=== PATIENT | female | born 1995 | race Caucasian/White ===

== ENCOUNTER 2021-03-09 15:51 | Emergency (ER) | payer BC, SELFPAY ==
[2021-03-09 16:05] VITALS: BP 112/82; PULSE 115; RESP 20; TEMP 36.8; O2SAT 100
--- NOTE | 2021-03-09 16:08 | ECG_ITS ---
Measurements Intervals [place] Rate: 115 P: 18 [place]: 112 QRS: 53 QRSD: 88 T: -4 QT: 335 QTc: 464 Interpretive Statements SINUS TACHYCARDIA WITH SHORT MO INTERVAL NONSPECIFIC T-WAVE ABNORMALITY- ANTEROLAT/INF LEADS ABNORMAL ECG Electronically Signed On 03-09-2021 17:16:06 CDT by Rich Buck D.O.
[2021-03-09 17:15] VITALS: BP 134/81; PULSE 106; RESP 18; O2SAT 99
--- NOTE | 2021-03-09 18:04 | ED.GENADULT ---
HPI - General Adult General Chief complaint: Unspecified Stated complaint: ATE EDIBLE CHOCOLATE HEART RACING Time Seen by Provider: 03/09/21 17:31 History of Present Illness HPI narrative: Patient is a 25-year-old female who presents ER with anxiety after eating edible marijuana. It was in the form of a square of chocolate. She was unaware that he had THC in it. She reports she ingested it at 9 AM. She has been having intermittent racing of her heart and overwhelming anxiety that is worse than typical for her. No fevers or chills or sweats. She reports her heart rate has been as high as 170 bpm on her watch. No history of arrhythmia. No hemoptysis. No lower extremity swelling. No recent surgery or prolonged immobilization. Related Data Home Medications Medication Instructions Recorded Confirmed No Home Medications 03/09/21 03/09/21 Allergies Allergy/AdvReac Type Severity Reaction Status Date / Time No Known Allergies Allergy Verified 03/09/21 17:15 Review of Systems Review of Systems: All systems reviewed & are unremarkable except as noted in HPI and below Constitutional: Constitutional: Denies chills, Denies fever(s) and Denies night sweats Cardiovascular: Cardiovascular: Denies edema, Denies radiating jaw, neck or arm pain and Reports palpitations Respiratory: Respiratory: Denies cough, Denies hemoptysis and Denies dyspnea Psychiatric: Psychiatric: Reports anxiety PMFSH Past Medical History Medical History (Updated 03/09/21 @ 18:19 by Estuardo Goldman MD) Healthy female adult Surgical History Surgical History (Updated 07/28/19 @ 19:58 by Nury Ceballos PA-C) History of section Social History Social History (Updated 07/28/19 @ 15:44 by Dimple Martínez CNP) Smoking status: Never smoker Gender identity (if verbalized by the patient): Female Exam Narrative: GENERAL: Well-appearing, well-nourished, and in no acute distress. HEAD: Normocephalic, atraumatic. EYES: PERRL and EOMI. CHEST: Clear to auscultation. No respiratory distress. HEART: Tachycardic and regular. Normal peripheral pulses. EXTREMITIES: Normal range of motion. No edema. SKIN: Warm, dry, no rash. NEURO: Alert and oriented x3. PSYCH: Normal mood and affect. Course Course Emergency Course: Gave patient reassurance. Heart rate slowing down from earlier. Alprazolam ordered but patient declined. Vital Signs Vital signs: Vital Signs Temperature 98.2 F 03/09/21 16:05 Pulse Rate 115 H 03/09/21 16:05 Respiratory Rate 20 03/09/21 16:05 Blood Pressure 112/82 03/09/21 16:05 Pulse Oximetry 100 03/09/21 16:05 Temperature 98.2 F 03/09/21 16:05 Pulse Rate 106 H 03/09/21 17:15 Respiratory Rate 18 03/09/21 17:15 Blood Pressure 134/81 03/09/21 17:15 Pulse Oximetry 99 03/09/21 17:15 Medical Decision Making Vital Signs Vital Signs: Vital Signs Temperature 98.2 F 03/09/21 16:05 Pulse Rate 115 H 03/09/21 16:05 Respiratory Rate 20 03/09/21 16:05 Blood Pressure 112/82 03/09/21 16:05 Pulse Oximetry 100 03/09/21 16:05 Temperature 98.2 F 03/09/21 16:05 Pulse Rate 106 H 03/09/21 17:15 Respiratory Rate 18 03/09/21 17:15 Blood Pressure 134/81 03/09/21 17:15 Pulse Oximetry 99 03/09/21 17:15 ECG Data EKG #1: ECG completion date: 03/09/21 ECG completion time: 16:20 EKG Interpretation: tachycardia (115), sinus rhythm, non-specific ST changes, normal QRS, normal QT and NL axis Discharge Plan Discharge Clinical Impression: Anxiety Patient Disposition: Home, Self-Care Condition: Stable Instructions: Anxiety (ED) Additional Instructions: You are having anxiety provoked by marijuana. Refrain from ingesting additional intoxicants. Return to the ER if you have fever over 100.4 ?F, you cannot keep down food or water, you have additional concerns. Prescriptions: No Action No Home Medications RF: 0 F
[2021-03-09 18:45] VITALS: BP 114/77; PULSE 94; RESP 20; O2SAT 96
== END 2021-03-09 18:48 | disposition home or self-care (01) ==
PROVIDERS: Emergency Provider Emergency Medicine
DX: F41.9 Anxiety disorder, unspecified (principal); R00.0 Tachycardia, unspecified; R94.31 Abnormal electrocardiogram [ECG] [EKG]
CPT/HCPCS: 93005; 99283

== ENCOUNTER 2021-03-17 13:41 | Outpatient (CLI) | payer BC, SELFPAY ==
--- NOTE | 2021-03-23 07:38 | WPDHOLTEREM ---
Holter/Event Monitor Holter/Event Monitor Date of procedure: 03/17/21 Holter/Event Procedure: 48 Hr Holter Monitor Indications: Dizziness Conclusion: 1. 48 hour holter monitor on 03/17/21. 2. Underlying rhythm is sinus rhythm. HR range 42-150 bpm; average HR 82. 3. There are 4 premature supraventricular complexes. No supraventricular tachycardia. 4. No premature ventricular complex. No ventricular tachycardia. 5. No sinoatrial or atrioventricular blocks. No significant pauses greater than 2 seconds. 6. Patient reports symptoms of chest pain, dizziness, nausea which demonstrate sinus rhythm, HR range 70-100 bpm.
== END 2021-03-17 13:42 | disposition home or self-care (01) ==
PROVIDERS: PCP Physician Assistant; Visit Provider Physician Assistant
DX: R42 Dizziness and giddiness (principal); R00.0 Tachycardia, unspecified
CPT/HCPCS: 93225; 93226

== ENCOUNTER 2021-03-19 16:29 | Outpatient (CLI) | payer BC, SELFPAY ==
[2021-03-19 16:53] LABS: Basophils Percent Auto 0.2 % (0.2-1.2); Eosinophils Absolute Auto 0.2 K/mm3 (0-0.3); Eosinophils Percent Auto 1.9 % (0-4.4); Hematocrit 43.3 % (37.0-47.0); Hemoglobin 14.2 g/dL (12.0-15.0); Immature Granulocyte Absolute 0.03 K/mm3 (0.00-0.031); Immature Granulocyte Percent A 0.2 % (0-0.5); Lymphocytes Absolute Auto 2.43 K/mm3 (0.9-3.2); Lymphocytes Percent Auto 19.6 % (18.3-44.2); Mean Corpuscular HGB Conc 32.8 g/dl (32-36); Mean Corpuscular Hemoglobin 28.8 pg (26-34); Mean Corpuscular Volume 87.8 fl (80-100); Mean Platelet Volume 10.2 fl (7.4-10.4); Monocytes Absolute Auto 0.9 K/mm3 (0.1-0.6); Monocytes Percent Auto 7.3 % (2.6-8.5); Neutrophils Absolute Auto 8.8 K/mm3 (1.3-6.7); Neutrophils Percent Auto 70.8 % (45.5-73.1); Platelet Count Result 335 k/mm3 (150-375); Red Blood Count 4.93 M/mm3 (4.2-5.4); Red Cell Distribution Width 13.5 % (11.5-14.5); White Blood Count 12.4 K/mm3 (4.5-10.0)
[2021-03-19 17:06] LABS: Alanine Aminotransferase 21 U/L (4-35); Albumin Level 4.7 g/dL (3.5-5.1); Alkaline Phosphatase 71 U/L (38-126); Anion Gap 12 mmol/L (8-16); Aspartate Amino Transferase 23 U/L (14-36); Bilirubin,Total 0.4 mg/dL (0.2-1.3); Blood Urea Nitrogen 12 mg/dL (7-17); Calcium 9.6 mg/dL (8.4-10.2); Carbon Dioxide 25 mmol/L (22-30); Chloride 99 mmol/L (98-107); Cholesterol 157 mg/dL (0-200); Estimated Glomerular Filt Rate > 60; Glucose 91 mg/dL (65-110); HDL Direct 39 mg/dL; Potassium 3.7 mmol/L (3.4-5.0); Sodium 136 mmol/L (137-145); Triglycerides 107 mg/dL (<150)
[2021-03-19 17:17] LABS: LDL Cholesterol Direct 87 mg/dL
[2021-03-19 20:46] LABS: Hemoglobin A1C 5.4 % (<5.7)
[2021-03-22 16:52] LABS: Tissue Transglutaminase IgG Ab 1 U/mL (<6)
[2021-03-26 10:49] LABS: Tissue Transglutaminase IgA Ab 1 U/mL (<4)
== END 2021-03-19 16:30 | disposition home or self-care (01) ==
LOC: ANHLAB 16:32
PROVIDERS: PCP Physician Assistant; Visit Provider Physician Assistant
DX: Z76.89 Persons encountering health services in other specified circumstances (principal); R42 Dizziness and giddiness; Z91.018 Allergy to other foods
CPT/HCPCS: 36415; 80053; 80061; 83036; 83516; 84443; 85025

== ENCOUNTER 2022-03-12 22:06 | Emergency (ER) | payer BC, SELFPAY ==
--- NOTE | ~2022-03-12 | XR_ITS ---
EXAMINATION: XR chest 2V DATE: 03/12/2022 23:11 INDICATION: Shortness of breath. Left chest pressure. TECHNIQUE: Frontal and lateral views of the chest were obtained. COMPARISON: None. FINDINGS: There is no pneumonia, pleural effusion, or pneumothorax. The heart size is normal. IMPRESSION: 1. No acute cardiopulmonary disease. Reviewed, dictated and finalized at location A.
--- NOTE | 2022-03-12 22:10 | ECG_ITS ---
Measurements Intervals [place] Rate: 83 P: 18 [place]: 129 QRS: 64 QRSD: 90 T: 22 QT: 372 QTc: 439 Interpretive Statements SINUS RHYTHM WITH SINUS ARRHYTHMIA COMPARED TO ECG 03/09/2021 16:20:37 SINUS RHYTHM NOW PRESENT SINUS ARRHYTHMIA NOW PRESENT Electronically Signed On 03-13-2022 13:37:48 CDT by Leila Yip M.D.
--- NOTE | 2022-03-12 22:15 | ECG_ITS ---
Measurements Intervals [place] Rate: 68 P: 22 [place]: 137 QRS: 57 QRSD: 94 T: 21 QT: 383 QTc: 409 Interpretive Statements SINUS RHYTHM NONSPECIFIC ST ABNORMALITY BORDERLINE ECG COMPARED TO ECG 03/09/2021 16:20:37 HEART RATE HAS DECREASED Electronically Signed On 03-18-2022 15:00:51 CDT by Suresh Figueroa M.D.
[2022-03-12 22:21] VITALS: BP 132/80; PULSE 100; RESP 16; TEMP 36.3; O2SAT 100
[2022-03-12 22:37] LABS: Basophils Percent Auto 0.3 % (0.2-1.2); Eosinophils Absolute Auto 0.3 K/mm3 (0-0.3); Eosinophils Percent Auto 2.7 % (0-4.4); Hematocrit 39.4 % (37.0-47.0); Hemoglobin 13.1 g/dL (12.0-15.0); Immature Granulocyte Absolute 0.04 K/mm3 (0.00-0.031); Immature Granulocyte Percent A 0.3 % (0-0.5); Lymphocytes Percent Auto 26.3 % (18.3-44.2); Mean Corpuscular HGB Conc 33.2 g/dl (32-36); Mean Corpuscular Hemoglobin 29.4 pg (26-34); Mean Corpuscular Volume 88.3 fl (80-100); Mean Platelet Volume 10.2 fl (7.4-10.4); Monocytes Percent Auto 7.9 % (2.6-8.5); Neutrophils Absolute Auto 7.6 K/mm3 (1.3-6.7); Neutrophils Percent Auto 62.5 % (45.5-73.1); Platelet Count Result 334 k/mm3 (150-375); Red Blood Count 4.46 M/mm3 (4.2-5.4); White Blood Count 12.2 K/mm3 (4.5-10.0)
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
[2022-03-13] VITALS (8 sets, daily range): BP systolic 127–143; BP diastolic 63–86; PULSE 72–96; RESP 11–24; O2SAT 95–100
[2022-03-13] MEDS: ACETAMINOPHEN 325 MG TABLET 650 MG PO (00:03)
[2022-03-13 00:11] LABS: Alanine Aminotransferase 21 U/L (6-35); Albumin Level 4.7 g/dL (3.5-5.1); Alkaline Phosphatase 84 U/L (38-126); Anion Gap 10 mmol/L (8-16); Aspartate Amino Transferase 22 U/L (14-36); Bilirubin,Total 0.2 mg/dL (0.2-1.3); Blood Urea Nitrogen 16 mg/dL (7-17); Calcium 9.2 mg/dL (8.4-10.2); Carbon Dioxide 29 mmol/L (22-30); Chloride 100 mmol/L (98-107); Estimated CRCL calculation 93 ml/min; Estimated Glomerular Filt Rate > 60; Glucose 117 mg/dL (65-110); Potassium 3.5 mmol/L (3.4-5.0); Sodium 139 mmol/L (137-145)
[2022-03-13 00:43] LABS: Appearance Urine Clear (Clear); Bilirubin Urine Negative (Negative); Blood Urine 2+ (Negative); Color Urine Yellow (Yellow); Glucose Urine UA Negative (Negative); Ketones Urine Negative (Negative); Leukocyte Esterase Ur Negative LEU/UL (Negative); Nitrate Urine Negative (Negative); Protein Urine Negative (Negative); Specific Grav Ur <= 1.005 (1.001-1.035); Urobilinogen Urine 0.2 mg/dL (<2.0); pH Urine 5.5 (5.0-9.0)
[2022-03-13 00:51] LABS: Bacteria Urine Trace /hpf; RBC Urine 0-2 /hpf (0-2); Squamous Epithelial Cell Urine Occasional /hpf (Few); WBC Urine 0-3 /hpf
[2022-03-13 00:53] LABS: Add Urine Microscopic? YES
[2022-03-13 01:08] LABS: Amphetamine Screen Urine Negative (Negative); Barbiturate Screen Urine Negative (Negative); Benzodiazepines Screen Urine Negative (Negative); Cannabinoid Screen Urine Negative (Negative); Cocaine Screen Urine Negative (Negative); Methadone Screen Urine Negative (Negative); Opiate Screen Urine Negative (Negative); Phencyclidine Screen Urine Negative (Negative)
== END 2022-03-13 02:20 | disposition home or self-care (01) ==
PROVIDERS: Emergency Medicine; Physician Assistant; Emergency Provider Emergency Medicine; PCP Physician Assistant
DX: F41.9 Anxiety disorder, unspecified (principal)
CPT/HCPCS: 36415; 71046; 80053; 80307; 81001; 81025; 84443; 85025; 93005; 99284; A9270

== ENCOUNTER 2022-11-20 13:00 | Emergency (ER) | payer BC, SELFPAY ==
[2022-11-20 13:26] VITALS: BP 128/89; PULSE 112; RESP 16; TEMP 36.8; O2SAT 99
--- NOTE | 2022-11-20 13:41 | ED.GENADULT ---
HPI - General Adult General Chief complaint: Upper Respiratory Infection Stated complaint: sore throat, ear pain Time Seen by Provider: 11/20/22 13:41 Source: patient, RN notes reviewed and old records reviewed Mode of arrival: ambulatory Limitations: no limitations History of Present Illness HPI narrative: 27 year old female who presents to [facility] care with complaints of sore throat and some ear pain which started 2 days ago with no known fevers, chills or sweats. Patient reports that she is taking diet and fluids well with no vomiting or diarrhea. Patient reports that family has been ill with strep throat. Patient states that she has been taking Ibuprofen for her throat pain. MD complaint: sore throat Onset (ago): day(s) (2) Severity scale (1-10): 4 Treatments prior to arrival: NSAID Related Data Allergies Allergy/AdvReac Type Severity Reaction Status Date / Time codeine AdvReac Unknown Verified 11/20/22 13:29 Review of Systems Review of Systems: CONSTITUTIONAL: Denies malaise, chills, sweats, or fever. EYES: Denies visual changes, redness, or discharge. ENT: Reports rhinorrhea, congestion, sinus pain, otalgia and sore throat. CARDIOVASCULAR: Denies chest pain, palpitations, or edema. RESPIRATORY: Reports no cough.? Denies dyspnea. GASTROINTESTINAL: Denies abdominal pain, nausea, vomiting, diarrhea SKIN: Denies rash or itching. MUSCULOSKELETAL: Denies myalgia. NEUROLOGIC: Denies headache. All systems reviewed & are unremarkable except as noted in HPI and below PMFSH Past Medical History Medical History (Updated 11/20/22 @ 15:56 by Noemi Blandon NP) Healthy female adult Surgical History Surgical History (Updated 11/20/22 @ 15:56 by Noemi Blandon NP) H/O tubal ligation History of section x2 Social History Social History Smoking status: Never smoker Substance use type: does not use Gender identity (if verbalized by the patient): Female Comments At time of signature, agree with nursing past medical, surgical, social and family history. There is no relevant family history pertinent to the presenting complaint Exam Narrative: GENERAL: Well-appearing, well-nourished, and in no acute distress. HEAD: Normocephalic EYES: PERRLA, conjunctivae clear ENT: Nares clear, turbinates edematous and erythematous, clear discharge. Mucous membranes moist. TM pearly le with dull light reflex bilaterally; no tragal tenderness. Oropharynx erythematous without lesions. Tonsils red enlarged and without exudate, no drooling, no hoarseness, no trismus, uvula midline. NECK: Supple. lymphadenopathy CHEST: Clear to auscultation, breath sounds equal. No wheezing, rhonchi, rales, or stridor. No respiratory distress, speaks in full sentences. HEART: Regular rate and rhythm. No murmur heard. SKIN: Warm, dry, no rash. NEURO: Alert and oriented x3. PSYCH: Normal mood and affect Course Course Emergency Course: Patient is aware of diagnosis, understands and agrees to treatment plan.? Anticipatory guidance given.? Patient agrees to follow-up as directed and is aware of reasons to seek care at the emergency department. Portions of this record may have been created with voice recognition software Level of Care: Express Care Visit Vital Signs Vital signs: Vital Signs Temperature 36.8 C 11/20/22 13:26 Pulse Rate 112 H 11/20/22 13:26 Respiratory Rate 16 11/20/22 13:26 Blood Pressure 128/89 11/20/22 13:26 Pulse Oximetry 99 11/20/22 13:26 Temperature 36.8 C 11/20/22 13:26 Pulse Rate 112 H 11/20/22 13:26 Respiratory Rate 16 11/20/22 13:26 Blood Pressure 128/89 11/20/22 13:26 Pulse Oximetry 99 11/20/22 13:26 Oxygen Delivery Room Air 11/20/22 13:30 Reviewed Medical Decision Making Differential Diagnosis Differential Diagnosis: URI, pharyngitis, strep pharyngitis, Medical
== END 2022-11-20 14:07 | disposition home or self-care (01) ==
PROVIDERS: Emergency Provider Registered Nurse
DX: J02.0 Streptococcal pharyngitis (principal)
CPT/HCPCS: 87880; 99213; G0463

== ENCOUNTER 2023-05-01 17:53 | Emergency (ER) | payer BC, SELFPAY ==
--- NOTE | 2023-05-01 18:07 | ED.SKABFB ---
HPI - Skin/Abscess/Foreign Bdy General Chief complaint: Skin/Abscess/Foreign Body Stated complaint: Back Irritation Source: patient and RN notes reviewed History of Present Illness HPI narrative: 28 yo F presents to urgent care with complaints of small areas of a rash that started this week. Pt states she and her friend have been cleaning out an old house and her friend has the rash much worse and was told by her MD that it was fungal in nature. Pt reports some itchiness to the spots. Pt also reports developing red irritation under her lower abdominal fold, intermittently, and will be moist. Denies any fevers, chills, chest pain, SOB, or other complaints. Related Data Allergies Allergy/AdvReac Type Severity Reaction Status Date / Time codeine AdvReac Unknown Verified 05/01/23 18:10 Review of Systems Review of Systems: CONSTITUTIONAL: Denies fever, chills, or sweats. EYES: Denies visual changes, redness, or discharge. ENT: Denies otalgia and sore throat CARDIOVASCULAR: Denies chest pain, palpitations, or edema. RESPIRATORY: Denies cough or dyspnea. GASTROINTESTINAL: Denies abdominal pain, nausea, vomiting, or diarrhea. GENITOURINARY: Denies dysuria or hematuria. SKIN: rash MUSCULOSKELETAL: Denies back pain, joint pain, or myalgia. NEUROLOGIC: Denies headache, numbness, or weakness. Pertinent positives per HPI. PMFSH Past Medical History Medical History (Updated 05/01/23 @ 18:20 by Nargis Aguilera, KARON) Healthy female adult Surgical History Surgical History (Updated 11/20/22 @ 15:56 by Noemi Blandon NP) H/O tubal ligation History of section x2 Social History Social History Smoking status: Never smoker Substance use type: does not use Gender identity (if verbalized by the patient): Female Comments At the time of my signature, I reviewed and agree with the nursing past medical, surgical, social, and family history. There is no relevant family history pertinent to the patient complaint. Exam Narrative: GENERAL: This is a well-nourished, well-developed patient, in no apparent distress. HEAD: normocephalic, atraumatic. EYES: Sclera clear/white. Vision is grossly intact. EARS: External ears normal, auditory canals clear and without drainage. Hearing grossly intact. NOSE: External nose normal with no obvious nasal discharge, nares without redness, no rhinorrhea. THROAT: Mucous membranes moist, posterior pharynx clear. NECK: Neck supple, non-tender without lymphadenopathy, masses or thyromegaly. CARDIOVASCULAR: Regular rate RESPIRATORY: No respiratory distress GASTROINTESTINAL: Abdomen soft, non-tender, nondistended. Bowel sounds are active. No hepato-splenomegaly, or palpable masses. No guarding. SKIN: mildly erythremic patches, approximately 2 cm in diameter to left posterior hip, right mid back, and lower abdomen. These areas are dry with defined borders. Pt also has brighter erythremic, moist, area under her panniculus. NEURO: awake, alert, and oriented to person, place and time. There were no obvious focal neurologic abnormalities. EXTREMITIES: No clubbing, cyanosis, or edema. No joint tenderness, effusion, or edema noted. BACK: Nontender without deformity or crepitus. No flank tenderness. Course Course Level of Care: Express Care Visit Vital Signs Vital signs: reviewed MDM - Skin/Abscess/Foreign Bdy MDM Narrative Medical decision making narrative: Apply the antifungal cream twice a day. Alternate using the steroid cream twice a day. Apply the antifungal cream under your abdomen fold twice a day and keep that area clean and dry as much as possible. Differential Diagnosis Differential diagnosis: Likely cellulitis, insect bites, contact dermatitis and other (fungal infection, dermatitis) Critical Care Time Critical Care Time Critical Care Time: No Discharge Plan Discharge Clinical Impression: Dermatit
[2023-05-01 18:08] VITALS: BP 132/91; PULSE 93; RESP 16; TEMP 36.7; O2SAT 100
== END 2023-05-01 18:29 | disposition home or self-care (01) ==
PROVIDERS: Emergency Provider Nurse Practitioner Family
DX: L30.9 Dermatitis, unspecified (principal)
CPT/HCPCS: 99213; G0463

== ENCOUNTER 2024-09-10 14:07 | Emergency (ER) | payer BC, SELFPAY ==
--- NOTE | 2024-09-10 14:11 | ED_ITS ---
HPI - URI/Sore Throat General Chief Complaint: Upper Respiratory Infection Stated Complaint: Strep Symptoms Time Seen by Provider: 09/10/24 14:15 Source: patient Mode of arrival: ambulatory Limitations: no limitations History of Present Illness HPI Narrative: Denice is a 29-year-old female patient presenting to the clinic today with complaints of sore throat x3 days. She reports she felt feverish. Denies any chest pain shortness of breath. No other URI symptoms. MD elicited complaint: fever and sore throat Related Data Home Medications ?Medication ?Instructions ?Recorded ?Confirmed ?Last Taken ?Type No Home Medications 02/10/24 09/10/24 Unknown History Allergies Allergy/AdvReac Type Severity Reaction Status Date / Time codeine AdvReac Unknown Verified 09/10/24 14:11 Review of Systems Review of Systems: Pertinent positives per HPI. Patient denies any fever, chills, rash, headache, visual changes, dizziness, cough, shortness of breath, chest pain, palpitations, nausea, vomiting, diarrhea, constipation, abdominal pain, or any urinary issues. PMFSH Past Medical History Medical History Healthy female adult Surgical History Surgical History H/O tubal ligation History of section x2 Family History Family History Grandparent Alcoholism Hypertension Mother Depression Grandparent Alcoholism Diabetes mellitus Hypertension Social History Social History Smoking status: Never smoker Substance use type: does not use Gender identity (if verbalized by the patient): Female Comments At the time of my signature, I reviewed and agree with the nursing past medical, surgical, social, and family history. There is no relevant family history pert inent to the patient complaint. Exam Narrative: General: Well-developed, well nourished, in no apparent distress Head: Normocephalic, atraumatic Eyes: Pupils equally round and reactive to light bilaterally, EOM intact, sclera and conjunctive clear, no discharge, lids normal Ears: TMs intact and clear, ear canals clear, no drainage, grossly hearing normal. Nose: Nares patent, no discharge, no inflammation, no sinus tenderness. Mouth: Oral pharynx mildly red without lesions or masses, good dentition, MMM. Neck: Supple, trachea midline, no enlargement of anterior or posterior cervical nodes, no thyroid masses or goiter palpable. Cardio: Regular rate and rhythm, s1 and s2 normal, no murmur appreciated. Resp: Clear to auscultation bilaterally, no rhonchi, rales, wheezing or rubs Course Course Emergency Course: Portions of this record may have been created with voice recognition software. Level of Care: Express Care Visit Vital Signs Vital signs: Vital signs reviewed MDM - URI/Sore Throat MDM Narrative Medical decision making narrative: At the time of visit patient is resting comfortably on the exam table. Patient appears to be nontoxic. Labs: Strep test was performed and was negative in the clinic today. We will strep for culture. Plan: I suspect patient has viral pharyngitis. Supportive measures were discussed with the patient and they voiced understanding discharge instructions and agrees to treatment plan. Return precautions reviewed Differential Diagnosis Differential diagnosis: Likely upper respiratory infection, otitis media, sinusitis, viral infection, bronchitis, influenza, pharyngitis and other (COVID) Discharge Plan Discharge Clinical Impression: Pharyngitis Qualifiers: Pharyngitis/tonsillitis etiology: unspecified etiology Qualified Code(s): J02.9 - Acute pharyngitis, unspecified Patient Disposition: Home, Self-Care Condition: Stable Instructions: Antibiotic Form, Pharyngitis (ED) Additional Instructions: Strep test was negative in the clinic today. We will send for culture. Increase fluids and stay well hydrated Tylenol/motrin for pain/fever Flonase and OTC antihistamines as directed Vicks vapor rub to open sinuses Sinus rinses for congestion Cepacol spray, cough drops, throat lozenges, warm tea with honey/lemon, gargle salt water to soothe throat BRAT diet for diarrhea Clear liquids x 24 hours then advance as tolerated for nausea/vomiting Go to the ED if you develop a worsening in your condition- high fever not controlled by Tylenol or Motrin, dehydration, weakness, lethargy, shortness of breath, or chest pain. Follow up with your PCP in 3-5 days if symptoms persist. Patient Language: Albanian Prescriptions: No Action No Home Medications Follow-up/Referrals: PHYSICIAN,MANPOWER DEVELOPMENT SPECIALIST [Primary Care Provider] - Stand Alone Forms: Work/School Release IP Time of Disposition: 14:23 Quality NIHSS Nursing Documentation ED NIHSS nursing documentation: reviewed/agree
[2024-09-10 14:13] VITALS: BP 132/82; PULSE 110; RESP 18; TEMP 36.7; O2SAT 98
[2024-09-10 14:26] LABS: EDSTREPNEGPOS1 Negative (Negative)
== END 2024-09-10 14:26 | disposition home or self-care (01) ==
PROVIDERS: Emergency Provider Nurse Practitioner Family
DX: J02.9 Acute pharyngitis, unspecified (principal)
CPT/HCPCS: 87081; 87880; 99213; G0463

== ENCOUNTER 2025-03-18 09:14 | Outpatient (CLI) | payer BC, SELFPAY ==
[2025-03-18 09:45] LABS: Hematocrit 42.6 % (37.0-47.0); Hemoglobin 14.2 g/dL (12.0-15.0); Mean Corpuscular HGB Conc 33.3 g/dl (32-36); Mean Corpuscular Hemoglobin 28.8 pg (26-34); Mean Corpuscular Volume 86.4 fl (80-100); Platelet Count Result 329 k/mm3 (150-375); Red Blood Count 4.93 M/mm3 (4.2-5.4); White Blood Count 8.1 K/mm3 (4.5-10.0)
--- OUTSIDE RECORDS SUMMARY | 2025-03-18 09:48 | XMS_ITS | Clinical Summary ---
Author Organization [place] [id number] Address [address] [place] [id number] Care Team Providers Care Science Education Professor Name Role Phone Melonie Zaragoza MD Primary Care Provider Allergies Active Allergy Reactions Criticality Noted Date Comments Codeine Dizziness Low 03/17/2021 Medications No known medications Active Problems Problem Noted Date Diagnosed Date Moderate major depression 04/12/2022 LUL (generalized anxiety disorder) 04/12/2022 Obesity 04/12/2022 History of gestational diabetes 03/17/2021 Assessment & Plan (03/17/2021 5:59 PM CDT): Advised heart healthy diet, decreased size of meals and more frequent/lower carb Will evaluate further with fbs and hgb a1c Food allergy 03/17/2021 Assessment & Plan (03/17/2021 5:59 PM CDT): Will refer to insurance salesman for further evaluation and treatment Resolved Problems Problem Noted Date Diagnosed Date Resolved Date Encounter to establish care 03/17/2021 04/12/2022 Dizziness 03/17/2021 04/12/2022 Assessment & Plan (03/17/2021 6:01 PM CDT): Discussed given presentation that she may have fluctuating blood sugar, will evaluate further with labs and will notify her of results as available 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 03/17/2021 04/12/2022 Assessment & Plan (03/17/2021 6:00 PM CDT): She declines medication at this time, will refer to psychiatrist for further evaluation and treatment She makes pact to report to er if having s/h ideations Anxiety 03/17/2021 04/12/2022 Assessment & Plan (03/17/2021 6:00 PM CDT): She declines medication at this time, will refer to psychiatrist for further evaluation and treatment She makes pact to report to er if having s/h ideations Tachycardia 03/17/2021 04/12/2022 Assessment & Plan (03/17/2021 5:59 PM CDT): Will evaluate further with labs, will notify of results as available Immunizations Immunization Administration Dates Next Due MMR 06/06/2018 Surgical History Surgery Date Site/Laterality Comments SECTION x 2 TUBAL LIGATION Medical History Medical History Date Comments Gestational diabetes Lactose intolerance Family History Medical History Relation Name Comments No Known Problems Brother Kidney disease Father Alcohol abuse Maternal Grandfather Anxiety disorder Maternal Grandfather Dementia Maternal Grandfather Diabetes Maternal Grandfather Depression Maternal Grandmother Hyperlipidemia Maternal Grandmother Anxiety disorder Mother Depression Mother Alcohol abuse Paternal Grandfather Anxiety disorder Paternal Grandfather Coronary artery disease Paternal Grandfather Diabetes Paternal Grandfather Hyperlipidemia Paternal Grandfather Anxiety disorder Paternal Grandmother COPD Paternal Grandmother Hyperlipidemia Paternal Grandmother Relation Name Status Comments Brother Father Alive Maternal Grandfather Maternal Grandmother Mother Alive Paternal Grandfather Paternal Grandmother Social History Tobacco Use Types Packs/Day Years Used Date Smoking Tobacco: Never Smokeless Tobacco: Never Tobacco Cessation:Counseling Given: Not Answered AUDIT-C Answer Date Recorded Q1: How often do you have a drink containing alc ohol? Monthly or less 04/12/2022 Q2: How many drinks containi ng alcohol do you have on a typical day when you are drinking? 1 or 2 04/12/2022 Q3: How often do you have si x or more drinks on one occasion? Never 04/12/2022 PHQ-2 Answer Date Recorded PHQ-2 Total Score (If total score is 3 or more points, staff should administer the PHQ-9) 3 04/12/2022 Personal Safety Answer Date Recorded Getting School Help Needed Not on file 09/24 Comments No Sex and Gender Information Value Date Recorded Sex Assigned at Not on file Legal Sex Female 10:30 AM CDT Gender Identity Not on file Sexual Orientation Not on file Obstetrics History Last Filed Vital Signs Vital Sign Reading Time Taken Comments Blood Pressure 116/78 03/16/2023 7:05 PM CDT Pulse 100 03/16/2023 7:05 PM CDT Temperature 37.1 C (98.7 F) 03/16/2023 7:05 PM CDT Respiratory Rate 16 03/16/2023 7:05 PM CDT Oxygen Saturation 97% 03/16/2023 7:05 PM CDT Inhaled Oxygen Concentration - - Weight 104.3 kg (230 lb) 03/16/2023 7:05 PM CDT Height 157.5 cm (5' 2) 03/16/2023 7:05 PM CDT Body Mass Index 42.07 03/16/2023 7:05 PM CDT Plan of Treatment Health Maintenance Due Date Last Done Comments Cervical Cancer Screening 1996 Hepatitis C Screening 1996 DTaP/Tdap/Td Vaccine (1 - Tdap) 2007 Hepatitis B Screening 2014 Regular Well Visit/Exam 18-64 2014 Varicella Vaccines (1 of 2 - 13+ 2-dose series) 07/04/2018 HPV Vaccines (1 - 3-dose SCD M series) 2023 Depression Screening 04/12/2023 04/12/2022, 04/12/2022, 03/17/2021 Influenza Vaccine (#1) 2025 Pneumococcal vaccine <65 Aged Out No longer eligible based on patient's age to complete this topic Insurance [employer] Address: [address] [place] [address] [employer] Address: [address] [place] [address] Care Teams Science Education Professor Relationship Specialty Start Date End Date Melonie Zaragoza MD PCP - General Family Practice 04/12/22
[2025-03-18 09:54] LABS: Hemoglobin A1C 5.3 % (<5.7)
[2025-03-18 10:05] LABS: Alanine Aminotransferase 21 U/L (6-35); Albumin Level 4.3 g/dL (3.5-5.1); Alkaline Phosphatase 75 U/L (38-126); Anion Gap 8 mmol/L (4-12); Aspartate Amino Transferase 34 U/L (14-36); Bilirubin,Total 0.4 mg/dL (0.2-1.3); Blood Urea Nitrogen 13 mg/dL (7-17); Calcium 9.2 mg/dL (8.4-10.2); Carbon Dioxide 26 mmol/L (22-30); Chloride 104 mmol/L (98-107); Cholesterol 139 mg/dL (0-200); Estimated Glomerular Filt Rate > 60; Glucose 98 mg/dL (65-110); HDL Direct 31 mg/dL; Potassium 3.9 mmol/L (3.4-5.0); Sodium 138 mmol/L (137-145); Total Protein 7.8 g/dL (6.3-8.2); Triglycerides 64 mg/dL (<150)
== END 2025-03-18 09:15 | disposition home or self-care (01) ==
LOC: ANHLAB 09:16
PROVIDERS: PCP Nurse Practitioner Family; Visit Provider Nurse Practitioner Family
DX: E66.01 Morbid (severe) obesity due to excess calories (principal); G47.00 Insomnia, unspecified; L30.4 Erythema intertrigo; L73.2 Hidradenitis suppurativa; Z00.00 Encounter for general adult medical examination without abnormal findings; Z13.220 Encounter for screening for lipoid disorders; Z13.228 Encounter for screening for other metabolic disorders; Z13.0 Encounter for screening for diseases of the blood and blood-forming organs and certain disorders involving the immune mechanism; Z13.1 Encounter for screening for diabetes mellitus
CPT/HCPCS: 36415; 80053; 80061; 83036; 85027